=== PATIENT | male | born 1945 | race Caucasian/White ===

== ENCOUNTER → 2016-12-06 | Outpatient (CLI) | payer OTHER, MEDICARE | END | disposition home or self-care (01) | LOC: GMAJ 10:15 | PROVIDERS: ATTEND Family Medicine | DX: Z79.899 Other long term (current) drug therapy (principal); Z12.5 Encounter for screening for malignant neoplasm of prostate | CPT/HCPCS: 84443; G0103 ==

== ENCOUNTER → 2016-12-12 | Outpatient (CLI) | payer OTHER, MEDICARE ==
--- NOTE | 2016-12-12 08:37 | MRI ---
EXAM DESCRIPTION: Lumbar Spine w/o Contrast CLINICAL HISTORY: LUMBAR DISC DISEASE. Low back pain with bilateral hip pain. COMPARISON: None Available. TECHNIQUE: MRI of the lumbar spine is performed according to our usual protocol with axial and sagittal multi sequence imaging. FINDINGS: The designated L5-S1 disc space is on axial T2 image 4. There is moderate dextroconvex curvature of the upper lumbar spine with apex at L2. Vertebral body statures maintained. Modic type I endplate changes to the left of midline at L1-L2. Modic type II endplate changes to the left of midline at L2-L3. Modic type I and II endplate changes to the right of midline at L4-L5. There is no acute fracture or destructive osseous lesion. The conus medullaris terminates normally. L1-2: Disc desiccation with mild disc narrowing. Moderate left and mild right facet hypertrophy. 2 mm leftward eccentric disc osteophyte complex with mild left neural foraminal stenosis. The spinal canal and right neural foramen are patent. L2-3: Disc desiccation with mild disc narrowing. Moderate bilateral facet hypertrophy. 2 mm leftward eccentric disc osteophyte complex with mild left neural foraminal stenosis. The spinal canal and right neural foramen are patent. L3-4: Disc desiccation with mild disc narrowing. Moderate severe bilateral facet hypertrophy with ligamentum flavum thickening. 2 to 3 mm posterior disc osteophyte complex with multifactorial moderate spinal canal stenosis. Residual AP diameter of the thecal sac is 7 mm. There is also moderate bilateral neural foraminal stenosis. L4-5: Disc desiccation with moderate disc narrowing. Moderate to severe facet hypertrophy and ligamentum flavum thickening. Rightward eccentric 3 mm disc osteophyte complex with severe right and mild to moderate left neural foraminal stenosis. The spinal canal is patent. L5-S1: Disc desiccation with mild disc narrowing. Severe bilateral facet hypertrophy. Small posterior annular tear. Small posterior disc bulge with no spinal canal nor foraminal stenosis. IMPRESSION: 1. Multilevel disc degeneration, facet degenerative changes, and dextro convex scoliosis in the lumbar spine as described above. The findings are most pronounced at L3-L4 where there is multifactorial moderate spinal canal stenosis and moderate bilateral neural foraminal stenosis. 2. At L4-L5, there is severe right and [id number] left neural foraminal stenosis. 3. Other levels as detailed above. Electronically signed by: Viraj Callejas MD 12/12/2016 8:35 AM CDT
== END | disposition home or self-care (01) ==
LOC: MRI 07:04
PROVIDERS: ATTEND Family Medicine
DX: M51.36 Other intervertebral disc degeneration, lumbar region (principal)

== ENCOUNTER 2016-12-28 05:52 | Day surgery (SDC) | payer OTHER, MEDICARE ==
[2016-12-28] MEDS ORDERED: LACTATED RINGERS 1,000 ML ONE (06:07)
[2016-12-28] MEDS ORDERED: PROPOFOL 200 MG/20 ML VIAL IV ONE (07:00)
--- NOTE | 2016-12-28 08:17 | OP ---
DATE OF PROCEDURE: 12/28/16 PREOPERATIVE DIAGNOSIS: 1. Colon cancer screen. POSTOPERATIVE DIAGNOSIS: 1. Hyperplastic polyp in the rectum. PROCEDURE: 1. Colonoscopy with polypectomy. SURGEON: Maximilian Heck MD. ANESTHESIA: MAC by Mohinder Urbano CRNA. ESTIMATED BLOOD LOSS: Less than 2 mL. COMPLICATIONS: None apparent. TECHNIQUE: After informed consent was obtained from the patient, the patient was taken to the Endoscopy Suite and put in the left lateral decubitus position. After adequate IV sedation was obtained, a digital rectal exam was performed which revealed normal sphincter tone, no intraluminal masses, and a smooth, 1+, anodular prostate. The colonoscope was then passed with good visualization all the way through the colon. The bowel prep was excellent. The cecum was identified by the presence of ileocecal valve and appendiceal orifice. The scope was then withdrawn slowly over the next 10 minutes and a good look at the entire colonic wall was obtained. No diverticula or masses were identified. Once hyperplastic polyp was found right about 18 cm in the upper portion of the rectum. It was removed with cold biopsy forceps and had good hemostasis. The biopsied specimen was sent to pathology. The rest of the rectum was normal. The scope was removed. The patient tolerated the procedure well. The patient was transported to the outpatient area in good condition. He will followup with me in two weeks. #[id number] [facility]
[2016-12-28 08:35] VITALS: O2SAT 96
[2016-12-28 09:20] VITALS: BP 129/82; TEMP 98.1
== END 2016-12-28 08:55 | disposition home or self-care (01) ==
LOC: AMB 05:52
PROVIDERS: ATTEND Family Medicine
DX: Z12.11 Encounter for screening for malignant neoplasm of colon (principal); D12.0 Benign neoplasm of cecum; Z79.899 Other long term (current) drug therapy
CPT/HCPCS: 00810; 45380; J3490; J7120

== ENCOUNTER → 2017-02-05 | Outpatient (CLI) | payer OTHER, MEDICARE ==
--- NOTE | 2017-02-06 08:14 | RAD ---
EXAM DESCRIPTION: Knee,Right 2 or More Views CLINICAL HISTORY: 71 years, Male, KNEE PAIN COMPARISON: None TECHNIQUE: Two views of the right knee FINDINGS: The knee is normally aligned and mineralized. No fracture or deformity or destructive process is seen. No effusion or mass or foreign body is noted. Mild degenerative changes are evident. IMPRESSION: 1. Normal right knee two views Electronically signed by: Vinay Parsons MD 02/06/2017 8:14 AM CDT
--- NOTE | 2017-02-06 08:18 | RAD ---
EXAM DESCRIPTION: Knee,Left 2 or More Views CLINICAL HISTORY: 71 years Male, KNEE PAIN COMPARISON: None. FINDINGS: 2 views of the left knee show no acute fracture or malalignment. There is probable mild lateral joint space narrowing. No significant joint space narrowing. No radiopaque foreign body or soft tissue gas. IMPRESSION: Mild degenerative changes, otherwise unremarkable exam. Electronically signed by: César Castillo MD 02/06/2017 8:18 AM CDT
== END | disposition home or self-care (01) ==
LOC: YCFC.O 08:04
PROVIDERS: ATTEND Anesthesiology Pain Medicine
DX: M25.562 Pain in left knee (principal); M25.561 Pain in right knee; Z79.891 Long term (current) use of opiate analgesic

== ENCOUNTER 2017-03-05 05:37 | Day surgery (SDC) | payer OTHER, MEDICARE ==
[~2017-03-05 05:37] MED LIST: LIDOCAINE 1% MPF 5 ML VIAL ONE; SODIUM BICARBONATE VIAL 50 MEQ/50 ML VIAL ONE; SODIUM CHLORIDE 0.9% 10 ML VIAL ONE; methylPREDNISolone ACETATE 80 MG/ML VIAL ONE
[2017-03-05] MEDS ORDERED: methylPREDNISolone ACETATE 80 MG/ML VIAL ONE (10:11)
[2017-03-05] MEDS ORDERED: SODIUM CHLORIDE 0.9% 10 ML VIAL ONE (10:11)
[2017-03-05] MEDS ORDERED: SODIUM BICARBONATE VIAL 50 MEQ/50 ML VIAL ONE (10:12)
[2017-03-05] MEDS: LIDOCAINE 1% MPF 5 ML VIAL ONE ×2 (12:57→12:59)
[2017-03-05] MEDS ORDERED: LIDOCAINE 1% MPF 5 ML VIAL ONE (13:04)
[2017-03-05 13:19] VITALS: BP 164/84; TEMP 97; O2SAT 99
== END 2017-03-05 13:15 | disposition home or self-care (01) ==
LOC: AMB 05:37
PROVIDERS: ATTEND Anesthesiology Pain Medicine
DX: M51.16 Intervertebral disc disorders with radiculopathy, lumbar region (principal)
CPT/HCPCS: 62323; 76000; J1030